=== PATIENT | female | born 1945 | race Caucasian/White ===

== ENCOUNTER 2021-07-10 14:41 | Outpatient (CLI) | payer MEDICARE, SELFPAY ==
--- NOTE | ~2021-07-10 | CT_ITS ---
EXAMINATION:CT lung screening DATE: 07/10/2021 15:09 INDICATION: Personal history of tobacco dependence. Smoker who quit 11 years ago with 30 pack year hi story. TECHNIQUE: Computed tomography (CT) of the chest was performed without intravenous contrast. Automate d exposure control and iterative reconstruction technique were employed. The dose-length product (DLP ) was 195.76 mGy-cm. COMPARISON: CT abdomen and pelvis 06/12/2013 FINDINGS: The lungs demonstrate mild atelectasis. There is a 5 mm nodule in left upper lobe. There is a 3 mm nodule in right lower lobe. There is a 2 mm nodule in lingula. No pleural effusion. Cardiomeg maxi is noted. There are coronary artery calcifications. There are calcifications of aortic valve. No pericardial effusion. There is a small sliding hiatal hernia. There is a 13 mm cyst in right kidney. There are changes of cholecystectomy. There is mild thoracic spondylosis. IMPRESSION: 1. Lung-RADS category 2: Benign appearance or behavior. Continue annual screening with noncontrast lo w-dose chest CT in 12 months. Reviewed, dictated and finalized at location A. CHGEAR REPAIRER IMPRESSION: 1. Lung-RADS category 2: Benign appearance or behavior. Continue annual screeni ng with noncontrast low-dose chest CT in 12 months.
== END 2021-07-10 14:42 | disposition home or self-care (01) ==
LOC: ANHIMG 14:49
PROVIDERS: PCP Family Medicine; Visit Provider Family Medicine
DX: Z12.2 Encounter for screening for malignant neoplasm of respiratory organs (principal); Z87.891 Personal history of nicotine dependence
CPT/HCPCS: 71271

== ENCOUNTER → 2021-12-23 10:48 | Outpatient (CLI) | payer MEDICARE, SELFPAY ==
--- NOTE | ~2021-12-23 | DEXA_ITS ---
Bone Density Report Name: GERARDO LOPEZ Age: 76 Sex: Female Ethnicity: White Date of : 1945 Indication: postmenopausal; screening for osteoporosis; height loss; hysterectomy; Referring Provider: KIKI BARNETT Study: Bone densitometry was performed. Exam Date: December 23, 2021 Accession number: [id number] Bone Density: Region BMD T-score Z-score Classification AP Spine (L1-L4) 1.132 0.8 3.2 Normal Femoral Neck (Left) 0.825 -0.2 1.9 Normal Total Hip (Left) 1.060 1.0 2.8 Normal Femoral Neck (Right) 0.838 -0.1 2.0 Normal Total Hip (Right) 1.095 1.3 3.1 Normal Total Hip Mean 1.078 1.2 3.0 Normal World Health Organization criteria for BMD impression classify patients as: Normal (T-score at or above -1.0), Osteopenia (T-score between -1.0 and -2.5), or Osteoporosis (T-score at or below -2.5). 10-year Fracture Risk: FRAX not reported because: All T-scores for Spine Total, Hip Total, Femoral Neck at or above -1.0 Previous Exams: Region Exam Age BMD T-score BMD Change BMD Change Date g/cm2 vs Baseline vs Previous AP Spine(L1-L4) 12/23/2021 76 1.132 0.8 0.099 0.047 01/01/2019 73 1.085 0.3 0.053* 0.053* 12/31/2014 69 1.032 -0.1 Total Hip(Left) 12/23/2021 76 1.060 1.0 0.017 0.028 01/01/2019 73 1.032 0.7 -0.012 -0.012 12/31/2014 69 1.044 0.8 Total Hip(Right) 12/23/2021 76 1.095 1.3 0.050 0.010 01/01/2019 73 1.085 1.2 0.041* 0.041* 12/31/2014 69 1.044 0.8 *Denotes significance at 95% confidence level, LSC for AP Spine = 0.022 g/cm2, LSC for Total Hip = 0.027 g/cm2 Clinical Information Provided by Patient: Has used the following medications: Vitamin D, Calcium Has the following medical conditions: Hysterectomy Patient maximum height was 69 Menopause Age: 39 Does not regularly consume dairy products Drinks caffeinated beverages Onset of menses at age 13 Number of children 1 Impression: The patient has normal bone mass. No significant bone loss was observed. Discussion: BONE DENSITY IS ABOVE THE MINIMUM DESIRABLE LEVEL AT ALL SKELETAL SITES TESTED. This patient?s bone mineral density is above the minimum desirable level (T-score -1.0 or better) at all sites measured. The patient should follow a healthful lifestyle (good nutrition with adequate calcium and vitamin D, and appropriate
--- NOTE | ~2021-12-23 | MM_ITS ---
EXAMINATION: MM screening lillian BI w jose alfredo HISTORY: Screening mammogram TECHNIQUE: Craniocaudal and mediolateral oblique 3-D tomosynthesis images were obtained and synthetic 2-D images were generated. CAD analysis was submitted and interpreted. COMPARISON: 01/01/2019, 01/04/2017 bilateral screening mammogram examinations BREAST PARENCHYMAL COMPOSITION: There are scattered areas of fibroglandular density. FINDINGS: Stable mild fibroglandular asymmetry. There is no evidence of suspicious mass, calcificatio n, or architectural distortion to suggest malignancy in either breast. There has been no suspicious i nterval change. IMPRESSION: 1. No mammographic evidence of malignancy. 2. Recommend routine screening mammography in one year. BI-RADS Category 2: Benign finding(s). Reviewed, dictated and finalized at location A.
== END ==
PROVIDERS: PCP Family Medicine; Visit Provider Family Medicine
DX: Z12.31 Encounter for screening mammogram for malignant neoplasm of breast (principal); Z78.0 Asymptomatic menopausal state
CPT/HCPCS: 77063; 77067; 77080

== ENCOUNTER 2022-08-18 13:45 | Outpatient (CLI) | payer MEDICARE, SELFPAY ==
--- NOTE | ~2022-08-18 | CT_ITS ---
EXAMINATION: CT lung screening DATE: 08/18/2022 14:06 INDICATION: Personal history of nicotine dependence, prior smoker with 30 pack year history TECHNIQUE: Computed tomography (CT) of the chest was performed without intravenous contrast. The dose -length product (DLP) was 162.30 mGy-cm. Automated exposure control and iterative reconstruction tech [employer] were employed. COMPARISON: 07/10/2021 FINDINGS: There is a stable 5 mm nodule in the left upper lobe. Additional smaller bilateral pulmonar y nodules are stable in size. There is a new 2 mm nodule in the medial aspect of the left upper lobe. No pleural effusion or pneumothorax. The lungs are free of focal airspace opacities. Cardiomegaly is noted. There is calcified coronary artery atherosclerosis. The gallbladder is surgically absent. The re are cysts in the right kidney. There is mild thoracic spondylosis. IMPRESSION: 1. Lung-RADS category 2: Benign appearance or behavior. Continue annual screening with noncontrast lo w-dose chest CT in 12 months. Reviewed, dictated and finalized at location B. FIELD DATA COLLECTOR IMPRESSION: 1. Lung-RADS category 2: Benign appearance or behavior. Continue annual screeni ng with noncontrast low-dose chest CT in 12 months.
== END 2022-08-18 13:46 | disposition home or self-care (01) ==
PROVIDERS: PCP Family Medicine; Visit Provider Physician Assistant
DX: Z12.2 Encounter for screening for malignant neoplasm of respiratory organs (principal); Z87.891 Personal history of nicotine dependence
CPT/HCPCS: 71271

== ENCOUNTER 2023-08-20 10:47 | Outpatient (CLI) | payer OTHER, SELFPAY ==
--- NOTE | ~2023-08-20 | CT_ITS ---
EXAMINATION:CT lung screening DATE: 08/20/2023 11:29 INDICATION: Persistent nicotine dependence. Smoker who quit 10 years ago with 30 pack year history. TECHNIQUE: Computed tomography (CT) of the chest was performed without intravenous contrast. Automate d exposure control and iterative reconstruction technique were employed. The dose-length product (DLP ) was 172.20 mGy-cm. COMPARISON: Chest CT 08/18/2022 FINDINGS: The lungs demonstrate mild atelectasis. There is a stable 4 mm nodule in left upper lobe. T here is a 3 mm nodule in lingula without change. No pleural effusion. Aortic atherosclerosis is noted . Cardiomegaly is noted. There are coronary artery calcifications. No pericardial effusion. There are cysts in right kidney measuring up to 17 mm. There is moderate thoracic spondylosis. IMPRESSION: 1. Lung-RADS category 2: Benign appearance or behavior. Continue annual screening with noncontrast lo w-dose chest CT in 12 months. Reviewed, dictated and finalized at location A. TRUCTION CARPENTER IMPRESSION: 1. Lung-RADS category 2: Benign appearance or behavior. Continue annual screeni ng with noncontrast low-dose chest CT in 12 months.
== END 2023-08-20 10:48 | disposition home or self-care (01) ==
PROVIDERS: PCP Family Medicine; Visit Provider Family Medicine
DX: Z12.2 Encounter for screening for malignant neoplasm of respiratory organs (principal); Z87.891 Personal history of nicotine dependence
CPT/HCPCS: 71271

== ENCOUNTER 2023-10-06 07:31 | Outpatient (CLI) | payer OTHER, SELFPAY ==
[2023-10-06 08:34] LABS: Influenza A QL RT-PCR Negative (Negative); Influenza B QL RT-PCR Negative (Negative); RSV RNA, RT-PCR Negative (Negative); SARS-CoV-2 RNA PCR Negative (Negative)
== END 2023-10-06 07:32 | disposition home or self-care (01) ==
PROVIDERS: PCP Family Medicine; Visit Provider Physician Assistant
DX: R50.9 Fever, unspecified (principal); Z20.822 Contact with and (suspected) exposure to COVID-19
CPT/HCPCS: 87637